=== PATIENT | male | born 1980 | race American Indian/Alaskan Native ===

== ENCOUNTER 2020-10-16 06:45 | Emergency (ER) | payer OTHER ==
[2020-10-16] MEDS ORDERED: ASPIRIN 325 MG TAB PO ONE (07:44)
--- NOTE | 2020-10-16 08:32 | XRay Report ---
CHEST 2 VIEWS INDICATION / CLINICAL INFORMATION: chest pain. COMPARISON: None available. FINDINGS: SUPPORT DEVICES: None. HEART / MEDIASTINUM: No significant abnormality. LUNGS / PLEURA: No significant pulmonary or pleural abnormality. No pneumothorax. ADDITIONAL FINDINGS: No significant additional findings. IMPRESSION: 1. No acute findings. Signer Name: All Israel MD Signed: 10/16/2020 8:28 AM Workstation Name: [id number]
--- NOTE | 2020-10-16 08:45 | Emergency Department Report ---
ED General Adult HPI - General Chief complaint: Chest Pain Stated complaint: CHEST PAIN AND HEAD PAIN Time Seen by Provider: 10/16/20 08:15 Source: patient Mode of arrival: Ambulatory Limitations: No Limitations - History of Present Illness Initial comments: This is a pleasant 40-year-old male who presents to the emergency department with a chief complaint of right-sided mid chest pain that started this morning. He reports he woke up to go to work hug his and got in his car and when he leaned down to get in his car he started to feel the pain. He reports this was a sudden onset of pain and rates it as a 7 out of 10 in severity. He describes it as sharp and stabbing. He reports the pain is aggravated with movement specifically of the right arm but denies any pain with breathing. He has a past medical history of hypertension and asthma. His current medications include Norvasc 10 mg and albuterol as needed. His allergies to penicillin. He denies any recent surgeries or immobilization. He does report smoking 1 pack of cigarettes daily. He has a past family history of his maternal grandfather having coronary artery disease in his 50s as well as multiple members of his family having hypertension. He personally denies any history of diabetes, hyperlipidemia, thromboembolic disease. Severity scale (0 -10): 7 - Related Data Previous Rx's Medication Instructions Recorded Last Taken Type Naproxen 500 mg PO BID #20 tablet 10/16/20 Unknown Rx Allergies Allergy/AdvReac Type Severity Reaction Status Date / Time No Known Allergies Allergy Unverified 10/16/20 07:12 ED Review of Systems ROS: Stated complaint: CHEST PAIN AND HEAD PAIN Other details as noted in HPI Comment: All other systems reviewed and negative Constitutional: denies: chills, fever Eyes: denies: eye pain, eye discharge, vision change ENT: denies: ear pain, throat pain Respiratory: denies: cough, shortness of breath, wheezing Cardiovascular: as per HPI, chest pain. denies: palpitations Endocrine: no symptoms reported Gastrointestinal: denies: abdominal pain, nausea, diarrhea Genitourinary: denies: urgency, dysuria Musculoskeletal: denies: back pain, joint swelling, arthralgia Skin: denies: rash, lesions Neurological: denies: headache, weakness, paresthesias Psychiatric: denies: anxiety, depression Hematological/Lymphatic: denies: easy bleeding, easy bruising ED Past Medical Hx - Past Medical History Previous Medical History?: Yes Hx Asthma: Yes - Surgical History Past Surgical History?: No - Medications Home Medications: Home Medications Medication Instructions Recorded Confirmed Last Taken Type Naproxen 500 mg PO BID #20 tablet 10/16/20 Unknown Rx ED Physical Exam - General Limitations: No Limitations General appearance: alert, in no apparent distress - Head Head exam: Present: atraumatic, normocephalic - Eye Eye exam: Present: normal appearance, PERRL, EOMI - ENT ENT exam: Present: normal exam, normal orophraynx, mucous membranes moist - Neck Neck exam: Present: normal inspection, full ROM. Absent: tenderness, meningismus - Respiratory Respiratory exam: Present: normal lung sounds bilaterally, chest wall tenderness (Tenderness to the right side of the chest wall). Absent: respiratory distress, wheezes, rales, rhonchi, stridor - Cardiovascular Cardiovascular Exam: Present: regular rate, normal rhythm, normal heart sounds. Absent: systolic murmur, diastolic murmur, rubs, gallop - GI/Abdominal GI/Abdominal exam: Present: soft, normal bowel sounds. Absent: distended, ten derness, guarding, rebound, rigid - Rectal Rectal exam: Present: deferred - Extremities Exam Extremities exam: Present: normal inspection, full ROM, normal capillary refill, other (Normal equal radial pulses bilaterally.). Absent: tenderness, calf tenderness (No posterior calf tenderness, negative Homans' sign bilaterally.) - Back Exam Back exam: Present: normal inspection, full ROM. Absent: tenderness, CVA tenderness (R), CVA tenderness (L) - Neurological Exam Neurological exam: Present: alert, oriented X3, normal gait - Psychiatric Psychiatric exam: Present: normal affect, normal mood - Skin Skin exam: Present: warm, dry, intact, normal color. Absent: rash ED Course Vital Signs 10/16/20 07:15 Temperature 98.3 F Pulse Rate 75 Respiratory 18 Rate Blood Pressure 135/89 [Right] O2 Sat by Pulse 97 Oximetry - Reevaluation(s) Reevaluation #1: 10/16/20 08:42 Patient is nontoxic in no acute distress. Vital signs are stable. He is PERC negative and a low risk by Wells criteria making pulmonary embolism unlikely. His EKG shows no acute ST or T wave abnormalities, no STEMI, normal axis, normal intervals. Probable early repolarization. Cardiac protocol ordered including serial troponins. I suspect that the pain is secondary to chest wall pain however will check a troponin now and at 2 hours and if negative this will be the 6-hour petra of chest pain and if patient is feeling better I will calculate a heart score and I will discharge him home with outpatient cardiology follow- up. Patient was advised of this plan is agreeable. I did also consider a thoracic aortic dissection however the patient has no tearing or ripping pain to the back, no widening of the mediastinum on chest x-ray and normal equal radial pulses making this unlikely. Also considered pneumonia or pneumothorax however no clinical findings with normal equal breath sounds bilaterally and no abnormal breath sounds as well as no findings on chest x-ray. Reevaluation #2: 10/16/20 11:56 pain is sleeping, woke up and has no pain at this time. Reevaluation #3: 10/16/20 12:13 The second troponin is negative. Patient has no pain. I will discharge him with anti-inflammatories for what I suspect is likely chest wall pain and outpatient follow-up with primary care and cardiology. He understood that at this time this testing did not rule out unstable angina and if he develops any more chest pain he need to return to the emergency department. He verbalized understand the diagnosis, treatment plan and follow-up instructions and all his questions were answered. ED Medical Decision Making - Lab Data Result diagrams: 10/16/20 08:30 10/16/20 08:30 Lab Results 10/16/20 10/16/20 10/16/20 Range/Units 08:30 08:30 11:08 WBC 7.9 (4.5-11.0) K/mm3 RBC 4.83 (3.65-5.03) M/mm3 Hgb 14.9 (11.8-15.2) gm/dl Hct 43.3 (35.5-45.6) % MCV 90 (84-94) fl MCH 31 (28-32) pg MCHC 34 (32-34) % RDW 13.5 (13.2-15.2) % Plt Count 200 (140-440) K/mm3 Lymph % (Auto) 15.4 (13.4-35.0) % [place] % (Auto) 7.1 (0.0-7.3) % Eos % (Auto) 1.0 (0.0-4.3) % Baso % (Auto) 0.7 (0.0-1.8) % Lymph # (Auto) 1.2 (1.2-5.4) K/mm3 [place] # (Auto) 0.6 (0.0-0.8) K/mm3 Eos # (Auto) 0.1 (0.0-0.4) K/mm3 Baso # (Auto) 0.1 (0.0-0.1) K/mm3 Seg Neutrophils % 75.8 H (40.0-70.0) % Seg Neutrophils # 6.0 (1.8-7.7) K/mm3 Sodium 139 (137-145) mmol/L Potassium 4.5 (3.6-5.0) mmol/L Chloride 100.3 (98-107) mmol/L Carbon Dioxide 29 (22-30) mmol/L Anion Gap 14 mmol/L BUN 9 (9-20) mg/dL Creatinine 0.7 L (0.8-1.3) mg/dL Estimated GFR > 60 ml/min BUN/Creatinine Ratio 13 % Glucose 95 (75-100) mg/dL Calcium 9.6 (8.4-10.2) mg/dL Total Bilirubin 1.20 (0.1-1.2) mg/dL AST 19 (5-40) units/L ALT 15 (7-56) units/L Alkaline Phosphatase 68 (35-129) units/L Troponin T < 0.010 < 0.010 (0.00-0.029) ng/mL Total Protein 7.1 (6.3-8.2) g/dL Albumin 4.5 (3.9-5) g/dL Albumin/Globulin Ratio 1.7 % - EKG Data When compared to previous EKG there are: no significant change Interpretation: no acute changes, normal EKG 10/16/20 08:45 Normal sinus rhythm with a ventricular rate of 77 bpm, no acute ST or T wave abnormalities, normal axis, normal intervals, probable early repolarization. - Radiology Data Radiology results: report reviewed, image reviewed [facility] [address] [place] [address] XRay Report Signed Patient: NINA CHAKRABORTY MR#: [id number] : 1980 Acct:[id number] Age/Sex: 40 / M ADM Date: 10/16/20 Loc: ED Attending Dr: Ordering Physician: Valarie Kasper MD Date of Service: 10/16/20 Procedure(s): XR chest routine 2V Accession Number(s): [id number] cc: Valarie Kasper MD Fluoro Time In Minutes: CHEST 2 VIEWS INDICATION / CLINICAL INFORMATION: chest pain. COMPARISON: None available. FINDINGS: SUPPORT DEVICES: None. HEART / MEDIASTINUM: No significant abnormality. LUNGS / PLEURA: No significant pulmonary or pleural abnormality. No pneumothorax. ADDITIONAL FINDINGS: No significant additional findings. IMPRESSION: 1. No acute findings. Signer Name: All Israel MD Signed: 10/16/2020 8:28 AM Workstation Name: [id number] Transcribed By: THEE Dictated By: All Israel MD Electronically Authenticated By: All Israel MD Signed Date/Time: 10/16/20827 - Medical Decision Making Patient nontoxic in no acute distress. Pain-free at discharge. Troponin x2 was negative and EKG was unremarkable. Heart score is a 2 which is low risk at this time. Patient educated about the importance of following up with cardiology for dynamic testing as needed. We will send him home with anti- inflammatories due to his reproducible chest wall pain. He is PERC negative and low risk by Wells criteria making this unlikely. - Differential Diagnosis ACS, PE, aortic dissection, pneumonia, pneumothorax Critical care attestation.: If time is entered above; I have spent that time in minutes in the direct care of this critically ill patient, excluding procedure time. ED Disposition Clinical Impression: Nonspecific chest pain Disposition: DC-01 TO HOME OR SELFCARE Is pt being admited?: No Condition: Stable Instructions: Nonspecific Chest Pain, Adult Prescriptions: Naproxen 500 mg PO BID #20 tablet Referrals: PRIMARY CAREMD [Primary Care Provider] - 3-5 Days PALMA WALSH MD [Staff Physician] - 3-5 Days KAREN DAILY MD [Staff Physician] - 3-5 Days Forms: Work/School Release Form(ED) Time of Disposition: 12:14 HEART Score - HEART Score History: Slightly suspicious EKG: Normal Age: < 45 Risk factors: > 3 risk factors or hx of atherosclerotic disease (family hx, smoking, HTN) Troponin: Troponin T < 0.010 ng/mL (0.00-0.029) 10/16/20 11:08 Troponin: < normal limit HEART Score: 2
[2020-10-16 08:52] LABS: Basophils # (Auto) 0.1 K/mm3 (0.0-0.1); Basophils % (Auto) 0.7 % (0.0-1.8); Eosinophils # (Auto) 0.1 K/mm3 (0.0-0.4); Hematocrit 43.3 % (35.5-45.6); Hemoglobin 14.9 gm/dl (11.8-15.2); Lymphocytes # (Auto) 1.2 K/mm3 (1.2-5.4); Lymphocytes % (Auto) 15.4 % (13.4-35.0); Mean Corpuscular HGB Conc 34 % (32-34); Mean Corpuscular Volume 90 fl (84-94); Monocytes # (Auto) 0.6 K/mm3 (0.0-0.8); Monocytes % (Auto) 7.1 % (0.0-7.3); Platelet Count 200 K/mm3 (140-440); Red Blood Count 4.83 M/mm3 (3.65-5.03); Red Cell Distribution Width 13.5 % (13.2-15.2)
[2020-10-16 09:15] LABS: Alanine Aminotransferase 15 units/L (7-56); Albumin 4.5 g/dL (3.9-5); Blood Urea Nitrogen 9 mg/dL (9-20); Calcium 9.6 mg/dL (8.4-10.2); Hemolysis Index 5
[2020-10-16 09:18] LABS: BUN/Creatinine Ratio 13
[2020-10-16 12:23] VITALS: BP 132/82
--- NOTE | 2020-10-18 13:28 | Electrocardiograph Report ---
[facility] Test Date: 2020-10-16 Test Time: 07:20:33 Pat Name: NINA CHAKRABORTY Department: Room: Gender: M Erp Analyst: YVETTE : 1980 Requested By: JEN SR Order Number: [id number] Reading MD: Cielo Monterroso Measurements Intervals [place] Rate: 77 P: 49 NV: 170 QRS: 68 QRSD: 73 T: 39 QT: 365 QTc: 412 Interpretive Statements Sinus rhythm ST elev, probable normal early repol pattern No previous ECG available for comparison Electronically Signed On 10-18-2020 13:27:25 EDT by Cielo Monterroso
== END 2020-10-16 12:23 | disposition home or self-care (01) ==
LOC: ED 06:45
DX: R07.89 Other chest pain (principal); J45.909 Unspecified asthma, uncomplicated; Z79.899 Other long term (current) drug therapy
CPT/HCPCS: 36415; 71046; 80053; 84484; 85025; 93005

== ENCOUNTER 2021-01-11 17:21 | Emergency (ER) | payer SELFPAY ==
[2021-01-11] MEDS ORDERED: IBUPROFEN 600 MG TAB PO ONE (20:13)
[2021-01-11] MEDS ORDERED: ONDANSETRON 4 MG ODT TAB PO ONE (20:13)
[2021-01-11] MEDS ORDERED: HYDROcodone/ACETAMINOPHEN 5-325 MG TAB PO ONE (20:13)
--- NOTE | 2021-01-11 21:03 | XRay Report ---
RIGHT SHOULDER 3 VIEWS INDICATION / CLINICAL INFORMATION: Right shoulder injury COMPARISON: None available. FINDINGS: BONES / JOINT(S): No acute fracture or subluxation. No significant arthritis. SOFT TISSUES: No significant abnormality. ADDITIONAL FINDINGS: None. Signer Name: Robert Gilman MD Signed: 01/11/2021 8:59 PM Workstation Name: [id number]
--- NOTE | 2021-01-11 21:41 | Emergency Department Report ---
ED Upper Extremity Inj HPI - General Chief Complaint: Extremity Injury, Upper Stated Complaint: BACK/SHOULDER/ RT SIDE PAIN Source: patient Mode of arrival: Ambulatory Limitations: No Limitations - History of Present Illness Initial Comments: Patient is a 40-year-old -[place] male with past medical history of asthma and hypertension who presents to the ED with complaint of acute onset persistent severe right shoulder pain after heavy lifting 5 days ago. Patient states the pain has been persistent and worse especially in the last 2 days. Patient denies fall, dizziness, syncope, chest pain, shortness of breath, abdominal pain, neck pain, headache, traumatic injury, numbness and tingling or weakness of upper or lower extremities bilaterally. MD Complaint: Injury to:: right, shoulder -: Sudden, days(s) (5) Other Extremity Injury: Shoulder: Right (Right shoulder pain) Other Injuries: none Place: work Severity scale (0 -10): 8 Improves With: rest Worsens With: movement of extremity Context: other (Heavy lifting) Associated Symptoms: denies other symptoms. denies: weakness, numbness, neck pain, suspects foreign body, nausea/vomiting, heard/felt popping sensat - Related Data Previous Rx's Medication Instructions Recorded Last Taken Type Naproxen 500 mg PO BID #20 tablet 10/16/20 Unknown Rx Baclofen 20 mg PO Q12H PRN #20 tablet 01/11/21 Unknown Rx Naproxen 500 mg PO Q12H PRN #30 tablet 01/11/21 Unknown Rx Allergies Allergy/AdvReac Type Severity Reaction Status Date / Time No Known Allergies Allergy Unverified 10/16/20 07:12 ED Review of Systems ROS: Stated complaint: BACK/SHOULDER/ RT SIDE PAIN Other details as noted in HPI Constitutional: denies: chills, fever Eyes: denies: eye pain, eye discharge, vision change ENT: denies: ear pain, throat pain Respiratory: denies: cough, shortness of breath, wheezing Cardiovascular: denies: chest pain, palpitations Endocrine: no symptoms reported Gastrointestinal: denies: abdominal pain, nausea, diarrhea Genitourinary: denies: urgency, dysuria Musculoskeletal: arthralgia (Right shoulder pain). denies: back pain, joint swelling Skin: denies: rash, lesions Neurological: denies: headache, weakness, paresthesias Psychiatric: denies: anxiety, depression Hematological/Lymphatic: denies: easy bleeding, easy bruising ED Past Medical Hx - Past Medical History Hx Hypertension: Yes Hx Asthma: Yes - Surgical History Past Surgical History?: No - Medications Home Medications: Home Medications Medication Instructions Recorded Confirmed Last Taken Type Naproxen 500 mg PO BID #20 tablet 10/16/20 Unknown Rx Baclofen 20 mg PO Q12H PRN #20 tablet 01/11/21 Unknown Rx Naproxen 500 mg PO Q12H PRN #30 tablet 01/11/21 Unknown Rx ED Physical Exam - General Limitations: No Limitations General appearance: alert, in no apparent distress - Head Head exam: Present: atraumatic, normocephalic, normal inspection - Eye Eye exam: Present: normal appearance, PERRL, EOMI Pupils: Present: normal accommodation - ENT ENT exam: Present: normal exam, normal orophraynx, mucous membranes moist, TM's normal bilaterally, normal external ear exam - Neck Neck exam: Present: normal inspection, full ROM. Absent: tenderness, lymphadenopathy, thyromegaly - Respiratory Respiratory exam: Present: normal lung sounds bilaterally. Absent: respiratory distress, wheezes, rales, rhonchi, chest wall tenderness, accessory muscle use, decreased breath sounds, other - Cardiovascular Cardiovascular Exam: Present: regular rate, normal rhythm, normal heart sounds. Absent: systolic murmur, diastolic murmur, rubs, gallop - GI/Abdominal GI/Abdominal exam: Present: soft, normal bowel sounds. Absent: tenderness, guarding, rigid, hyperactive bowel sounds, hypoactive bowel sounds, mass - Extremities Exam Extremities exam: Present: normal inspection, tenderness (Palpable severe right shoulder tenderness with limited range of motion due to pain), normal capillary refill. Absent: full ROM (Limited range of motion of right shoulder due to pain), pedal edema, joint swelling, calf tenderness - Back Exam Back exam: Present: normal inspection - Neurological Exam Neurological exam: Present: alert, oriented X3 - Psychiatric Psychiatric exam: Present: normal affect, normal mood - Skin Skin exam: Present: warm, dry, intact, normal color. Absent: rash ED Course Vital Signs 01/11/21 19:54 Temperature 97.8 F Pulse Rate 90 Respiratory 16 Rate Blood Pressure 132/91 [Right] O2 Sat by Pulse 98 Oximetry ED Medical Decision Making - Radiology Data Radiology results: report reviewed, image reviewed [facility] [address] [place] [address] XRay Report Signed Patient: NINA CHAKRABORTY MR#: [id number] : 1980 Acct:[id number] Age/Sex: 40 / M ADM Date: 01/11/21 Loc: ED Attending Dr: Ordering Physician: ALEJANDRINA PELAEZ Date of Service: 01/11/21 Procedure(s): XR shoulder 2+V RT Accession Number(s): [id number] cc: ALEJANDRINA PELAEZ Fluoro Time In Minutes: RIGHT SHOULDER 3 VIEWS INDICATION / CLINICAL INFORMATION: Right shoulder injury COMPARISON: None available. FINDINGS: BONES / JOINT(S): No acute fracture or subluxation. No significant arthritis. SOFT TISSUES: No significant abnormality. ADDITIONAL FINDINGS: None. Signer Name: Robert Gilman MD Signed: 01/11/2021 8:59 PM Workstation Name: [id number] Transcribed By: ES Dictated By: Robert Gilman MD Electronically Authenticated By: Robert Gilman MD Signed Date/Time: 01/11/212058 DD/ 57 TD/TT: - Medical Decision Making This is a 40-year-old -[place] male with past medical history of asthma and hypertension who presents to the ED with complaint of acute onset persistent severe right shoulder pain after heavy lifting 5 days ago. Patient states the pain has been persistent and worse especially in the last 2 days. In the ED, patient is alert and oriented x3 and is not in any distress. Patient however appears to be in significant pain. Patient was treated for pain in the ED and right shoulder x-ray shows no acute fractures or subluxations. Based on the history and physical exam findings, as well as the unremarkable right shoulder x-ray report, patient symptoms are likely musculoskeletal injury due to the heavy lifting. Patient was therefore discharged home on pain medications and advised follow-up with his primary care physician in 7 to 10 days for reevaluation. Patient is advised return to the ED immediately if symptoms get worse. - Differential Diagnosis Shoulder sprain; shoulder spasm; shoulder contusion; shoulder fracture Critical care attestation.: If time is entered above; I have spent that time in minutes in the direct care of this critically ill patient, excluding procedure time. ED Disposition Clinical Impression: Sprain of shoulder Qualifiers: Encounter type: initial encounter Shoulder sprain type: unspecified sprain Laterality: right Qualified Code(s): S43.401A - Unspecified sprain of right shoulder joint, initial encounter Muscle strain of right shoulder Qualifiers: Encounter type: initial encounter Qualified Code(s): S46.911A - Strain of unspecified muscle, fascia and tendon at shoulder and upper arm level, right arm, initial encounter Disposition: HOME / SELF CARE / HOMELESS Is pt being admited?: No Does the pt Need Aspirin: No Condition: Stable Instructions: Muscle Strain, [id number], Shoulder Sprain Additional Instructions: Right shoulder x-ray shows no acute fractures or subluxations. Your injuries are likely musculoskeletal. Therefore take pain medication as advised, drink plenty fluids and follow-up with your primary care physician in 5 to 7 days for reevaluation. Return to the ED immediately if symptoms get worse. Prescriptions: Baclofen 20 mg PO Q12H PRN #20 tablet PRN Reason: Muscle Spasm Naproxen 500 mg PO Q12H PRN #30 tablet PRN Reason: Pain , Severe (7-10) Referrals: [facility] [Provider Group] - 3-5 Days Forms: Work/School Release Form(ED) Time of Disposition: 21:47 Print Language: ALBANIAN
[2021-01-11 21:55] VITALS: BP 135/85
== END 2021-01-11 21:55 | disposition home or self-care (01) ==
LOC: ED 17:21
DX: S43.401A Unspecified sprain of right shoulder joint, initial encounter (principal); J45.909 Unspecified asthma, uncomplicated; I10 Essential (primary) hypertension; X50.9XXA Other and unspecified overexertion or strenuous movements or postures, initial encounter; Y93.89 Activity, other specified; Y92.89 Other specified places as the place of occurrence of the external cause; Y99.8 Other external cause status
CPT/HCPCS: 99283; Q0162